=== PATIENT | female | born 1960 | race Caucasian/White ===

== ENCOUNTER → 2017-11-11 | Outpatient (CLI) | payer OTHER | LOC: CIMAGING 07:10 | PROVIDERS: ATTEND Obstetrics & Gynecology Gynecology | DX: Z12.31 Encounter for screening mammogram for malignant neoplasm of breast (principal) | CPT/HCPCS: G0202 ==

== ENCOUNTER 2017-11-17 05:36 | Day surgery (SDC) | payer OTHER ==
[2017-11-17] MEDS ORDERED: LR 1,000 ML IV ONE (06:11)
[2017-11-17 06:36] VITALS: PULSE 68
[2017-11-17] MEDS ORDERED: OXYMETAZOLINE 30 ML NASAL SPRAY ONE (07:10)
[2017-11-17] MEDS ORDERED: BUPIVACAINE 0.25% 30 ML SDV ONE (07:10)
[2017-11-17] MEDS ORDERED: fentaNYL 250 MCG/5 ML INJ ONE (07:12)
[2017-11-17] MEDS ORDERED: PROPOFOL/EMULSION 500 MG/50 ML BOTTLE IV ONE ×2 (07:12→07:18)
[2017-11-17] MEDS ORDERED: MIDAZOLAM 2 MG/2 ML VIAL IVP ONE (07:12)
[2017-11-17] MEDS ORDERED: MIDAZOLAM 2 MG/2 ML VIAL ONE (07:15)
[2017-11-17] MEDS ORDERED: ACETIC ACID IRR SOLN 0.25% 1,000 ML BTL ONE (07:20)
--- NOTE | 2017-11-17 07:26 | PDANEPAE ---
ANE History of Present Illness 57 y/o woman for excision of labial mass and tracheal lesion. ANE Past Medical History - Cardiovascular History Hx Hypertension: No Hx Arrhythmias: No Hx Chest Pain: No Hx Coronary Artery / Peripheral Vascular Disease: No Hx CHF / Valvular Disease: No Hx Palpitations: No - Pulmonary History Hx COPD: No Hx Asthma/Reactive Airway Disease: No Hx Recent Upper Respiratory Infection: No Hx Oxygen in Use at Home: No Hx Sleep Apnea: No Sleep Apnea Screening Result - Last Documented: Negative Pulmonary History Comment: quit smoking cigs 10-05-17 - Neurologic History Hx Cerebrovascular Accident: No Hx Seizures: No Hx Dementia: No - Endocrine History Hx Diabetes: No - Renal History Hx Renal Disorders: No - Liver History Hx Hepatic Disorders: No - Neurological & Psychiatric Hx Hx Neurological and Psychiatric Disorders: No - Cancer History Hx Cancer: No - Congenital Disorder History Hx Congenital Disorders: No - GI History Hx Gastrointestinal Disorders: No - Other Health History Other Health History: pre-cancerous lesion L labia. "white spot" on vocal cord. - Chronic Pain History Chronic Pain: No - Surgical History Prior Surgeries: T.L. age 28's ANE Review of Systems Review of systems is: negative Review of Systems: - Exercise capacity METS (RN): 4 METS ANE Patient History - Allergies Allergies/Adverse Reactions: codeine Allergy (Verified 11/07/17 10:12) Vomiting - Home Medications Home Medications: Premarin 05/28/16 [Last Taken 11/16/17] Progesterone 05/28/16 [Last Taken 11/16/17] buPROPion 05/28/16 [Last Taken 11/17/17] - NPO status NPO Since - Liquids (Date): 11/17/17 NPO Since - Solids (Date): 11/16/17 - Smoking Hx Smoking Status: Former smoker ANE Labs/Vital Signs - Vital Signs Blood Pressure: 112/76 Heart Rate: 68 Respiratory Rate: 16 O2 Sat (%): 94 Height: 160.02 cm Weight: 90.718 kg ANE Physical Exam - Airway Neck exam: FROM Mallampati Score: Class 2 - Pulmonary Pulmonary: no respiratory distress - Cardiovascular Cardiovascular: regular rate and rhythym - ASA Status ASA Status: II ANE Anesthesia Plan Anesthesia Plan: general endotracheal anesthesia
--- NOTE | 2017-11-17 07:31 | PDHPUP ---
History & Physical Update H&P update statement: This history and physical update is based on an assessment of the patient which was completed after admission or registration (within 24 hours), but prior to the surgery/procedure.
[2017-11-17] MEDS ORDERED: PROMETHAZINE HCL 25 MG/ML INJ IVP PRN (08:04)
[2017-11-17] MEDS ORDERED: LABETALOL HCL 5 MG/ML 20 ML MDV IVP PRN (08:04)
[2017-11-17] MEDS ORDERED: OXYCODONE/APAP 5/325 TAB PO PRN (08:04)
[2017-11-17] MEDS ORDERED: ONDANSETRON 4 MG/2 ML VIAL IVP PRN (08:04)
[2017-11-17] MEDS ORDERED: PHENYLEPHRINE HCL 100 MCG/ML SYR IVP PRN (08:04)
[2017-11-17] MEDS ORDERED: fentaNYL 100 MCG/2 ML INJ IVP PRN (08:04)
[2017-11-17] MEDS ORDERED: NALOXONE HCL 0.4 MG/ML INJ IVP PRN (08:04)
[2017-11-17] MEDS ORDERED: ALBUTEROL 3 ML DEYVIAL IH PRN (08:04)
[2017-11-17] MEDS ORDERED: ACETAMINOPHEN 500 MG TAB PO PRN (08:04)
[2017-11-17] MEDS ORDERED: epHEDrine SULFATE 10 MG/ML SYR IVP PRN (08:04)
[2017-11-17] MEDS ORDERED: LR 500 ML IV PRN (08:04)
[2017-11-17] MEDS ORDERED: DEXAMETHASONE 4 MG/ML VIAL IVP PRN (08:04)
--- NOTE | 2017-11-17 08:36 | POSTOPPROG ---
Post Op Note Date of Operation: 11/17/17 Surgeon: Shakila Sun Anesthesiologist: kiran Hughes Anesthesia: LMA Pre-op Diagnosis: vulvar dysplasia Post-op Diagnosis: vulvar dysplasia Indication: HILARIO 2-3 Procedure: wide local excision Findings: vulvar lesion on perineum Inf/Abcess present in the surg proc area at time of surgery?: No EBL: Minimal
--- NOTE | 2017-11-17 09:27 | POSTOPPROG ---
Post Op Note Date of Operation: 11/17/17 Surgeon: Daniel Newman Anesthesia: GET(General Endotracheal) Pre-op Diagnosis: right vocal cord lesion Post-op Diagnosis: same Procedure: microlaryngoscopy with laser including excision and ablation of left vocal Findings: left tvc lesion Inf/Abcess present in the surg proc area at time of surgery?: No Depth: Superfical (Skin SQ) EBL: Minimal Specimen(s): left vocal lesion
--- NOTE | 2017-11-17 09:49 | POSTANESTH ---
Post Anesthetic Evaluation Cardiovascular Status: Normal, Stable Respiratory Status: Normal, Stable Level of Consciousness/Mental Status: Can Participate in Eval Pain Control: Adequate, Prn Tx Ordered Nausea/Vomiting Control: Adequate, Prn Tx Ordered Complications Possibly Related to Anesthesia: None Noted
[2017-11-17 10:58] VITALS: RESP 18; TEMP 98.2
[2017-11-17 11:22] VITALS: BP 110/85; O2SAT 82
--- NOTE | 2017-11-17 11:53 | GOP ---
[f rep st] OPERATIVE REPORT DATE OF OPERATION: 11/17/2017 SURGEON: Shakila Sun MD ANESTHESIA: General with LMA. 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 PROCEDURE PERFORMED: Wide local excision. FINDINGS: Similar-appearing lesion at the 5 o'clock position on the perineum extending into the left labia minora. Complete acetowhite evaluation of the vulva done and there were no other acetowhite c hanges and then inspection of the vagina done with vinegar and no acetowhite changes noted. INDICATIONS: Patient is a 57-year-old noted to have a vulvar lesion at annual exam last month. Biop sy showed HILARIO 2-3 with positive margins. The patient needs further removal of tissue and also for fu rther diagnosis of lesion to rule out any carcinoma in situ. The patient is aware that there is a po ssibility that she might have persistent margins and may need a repeat surgery. DESCRIPTION OF PROCEDURE: With informed consent signed, patient taken out room placed under general anesthesia, placed in the low dorsal lithotomy position, was not prepped but draped. She previously emptied her bladder. I first did an inspection with the acetic acid and findings as noted above, and then was marked with a purple marker the extent of the lesion and where my margins needed to be. Ne xt, the area was cleaned with Betadine and then injected with 0.25% Marcaine for postop pain control. The scalpel was used to excise the marked area and the entire tissue came out intact and then hemos tasis was obtained with Bovie cautery. Then, 2 deeper incisions to reapproximate the incised sites u sed with 3-0 Vicryl. These were 2 interrupted sutures and then 4-0 Monocryl was used to bring the ti ssue edges together and this was done with interrupted sutures so the skin lines came together very w ell with no increased tension. KY jelly was placed on the site and then patient was placed in the sup ine position. The patient was not woken up as Dr. Timothy Newman plans to do a vocal cord biopsy outpat ient. COMPLICATIONS: None. /[id number]/MODL
--- NOTE | 2017-11-17 12:48 | GOP ---
[f rep st] OPERATIVE REPORT DATE OF OPERATION: 11/17/2017 SURGEON: Jr Newman MD ANESTHESIA: General endotracheal. PREOPERATIVE DIAGNOSIS: Left vocal cord lesion. POSTOPERATIVE DIAGNOSIS: Left vocal cord lesion. PROCEDURE PERFORMED: Microlaryngoscopy with biopsy of left vocal cord lesion followed by laser ablat ion of base of lesion. 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 ESTIMATED BLOOD LOSS: 3 mL fluid. DESCRIPTION OF PROCEDURE: The patient was placed on the operating table in supine position. The andrew ent had undergone prior excision of a lesion by Dr. Sun. Following her portion of procedure, steri le eye pads and head drape were placed. A shoulder roll was placed under the patient's shoulders to extend the neck. A rubber tooth guard was placed over the upper incisors and the Dedo laryngoscope wa s advanced to the oral cavity and then into the oropharynx. The scope was then used to visualize the larynx. A lesion of the left vocal cord, which had been previously visualized in my office on the vi pam fiber endoscopy, was noted. The lesion was examined and was noted to be somewhat friable. The les ion was grasped with a cup forceps and retracted medially. The base of the lesion was excised using curved scissors. The lesion was then sent for frozen section evaluation which was read as consistent with [id number] dysplasia, no severe dysplasia or invasive carcinoma was identified. At this point, it was elected to vaporize the base of the lesion. This was done using the CO2 laser on defocu s mode. The remaining abnormal looking tissue was treated with the laser and then virtually the enti re base of the lesion was treated with the CO2 laser in a defocus manner. At this point, the procedur e was terminated. The patient was then awakened, transferred to postanesthesia recovery in stable co ndition. FLUIDS REPLACED: 300 mL. COMPLICATIONS: None. /[id number]/MODL
== END 2017-11-17 11:23 | disposition home or self-care (01) ==
LOC: FSGY 05:36
PROVIDERS: ATTEND Obstetrics & Gynecology Gynecology
PROC: 0CBV8ZX Excision of Left Vocal Cord, Via Natural or Artificial Opening Endoscopic, Diagnostic (ICD-10-PCS; principal; 2017-11-17 07:15)
PROC: 0C5V8ZZ Destruction of Left Vocal Cord, Via Natural or Artificial Opening Endoscopic (ICD-10-PCS; principal; 2017-11-17 07:15)
PROC: 0UBMXZX Excision of Vulva, External Approach, Diagnostic (ICD-10-PCS; 2017-11-17 07:15)
DX: J38.3 Other diseases of vocal cords (principal); N90.3 Dysplasia of vulva, unspecified; Z87.891 Personal history of nicotine dependence
CPT/HCPCS: J2250; J2704; J3010

== ENCOUNTER → 2018-11-24 | Outpatient (CLI) | payer OTHER | LOC: CIMAGING 07:16 | PROVIDERS: ATTEND Obstetrics & Gynecology Gynecology | DX: Z12.31 Encounter for screening mammogram for malignant neoplasm of breast (principal); R92.2 Inconclusive mammogram ==

== ENCOUNTER → 2018-12-06 | Outpatient (CLI) | payer OTHER | LOC: CIMAGING 12:41 | PROVIDERS: ATTEND Obstetrics & Gynecology Gynecology | DX: R92.8 Other abnormal and inconclusive findings on diagnostic imaging of breast (principal) | CPT/HCPCS: 76641-PO ==

== ENCOUNTER 2019-04-19 08:37 | Day surgery (SDC) | payer OTHER ==
--- NOTE | 2019-04-18 10:16 | PDHPUP ---
History & Physical Update H&P update statement: This history and physical update is based on an assessment of the patient which was completed after admission or registration (within 24 hours), but prior to the surgery/procedure. H&P update: H&P reviewed & patient examined, no change in patient's condition since H&P completed
[2019-04-19] MEDS ORDERED: DEXAMETHASONE 4 MG/ML VIAL IVP ONE (09:11)
[2019-04-19] MEDS ORDERED: ceFAZolin 2 GM/DEXTROSE 100 ML IV ONE (09:11)
[2019-04-19] MEDS ORDERED: LR 1,000 ML IV ONE (09:12)
[2019-04-19] MEDS ORDERED: MIDAZOLAM 2 MG/2 ML VIAL IVP ONE (10:11)
--- NOTE | 2019-04-19 10:11 | PDANEPAE ---
ANE History of Present Illness vocal cord cancerous lesion ANE Past Medical History - Cardiovascular History Hx Hypertension: No Hx Arrhythmias: No Hx Chest Pain: No Hx Coronary Artery / Peripheral Vascular Disease: No Hx CHF / Valvular Disease: No Hx Palpitations: No - Pulmonary History Hx COPD: No Hx Asthma/Reactive Airway Disease: No Hx Recent Upper Respiratory Infection: No Hx Oxygen in Use at Home: No Hx Sleep Apnea: No Sleep Apnea Screening Result - Last Documented: Negative Pulmonary History Comment: Quit smoking cigs 10-05-17 - Neurologic History Hx Cerebrovascular Accident: No Hx Seizures: No Hx Dementia: No - Endocrine History Hx Diabetes: No Hypothyroid: No Hyperthyroid: No Obesity: moderate - Renal History Hx Renal Disorders: No - Liver History Hx Hepatic Disorders: No - Neurological & Psychiatric Hx Hx Neurological and Psychiatric Disorders: No Neurological / Psychiatric History Comment: Bupropion for smoking cessation. - Cancer History Hx Cancer: No Cancer History Comment: L labial lesion percancerous 2016. L vocal cord lesion precancerous 2016. - Congenital Disorder History Hx Congenital Disorders: No - GI History GERD: no Hx Gastrointestinal Disorders: No - Other Health History Other Health History: L labial lesion percancerous 2016. L vocal cord lesion precancerous 2017. Lichen planus chronic skin rash, uses ointment. Dental implant and 3-tooth bridge in upper front - Chronic Pain History Chronic Pain: No - Surgical History Prior Surgeries: T.L. age 30's. L vocal cord lesion laser surgery/L labial lesion excision 2016 ANE Review of Systems Review of systems is: negative Review of Systems: - Exercise capacity Exercise capacity: >=4 METS METS (RN): 4 METS ANE Patient History - Allergies Allergies/Adverse Reactions: codeine Allergy (Verified 11/07/17 10:12) Vomiting - Home Medications Home medications: home medication list seen and reviewed Home Medications: Premarin 0.3 mg DAILY 05/28/16 [Last Taken 04/18/19 21:30] Progesterone 100 mg DAILY 05/28/16 [Last Taken 04/18/19 21:30] buPROPion 150 mg BID 05/28/16 [Last Taken 04/19/19 07:00] Naproxen 500 mg PO PRN 04/10/19 [Last Taken 03/15/19] Zolpidem Tartrate 5 mg PO 04/10/19 [Last Taken 04/12/19] - NPO status NPO Status: no food or drink >8 hours NPO Since - Liquids (Date): 04/19/19 NPO Since - Liquids (Time): 07:00 NPO Since - Solids (Date): 04/18/19 NPO Since - Solids (Time): 19:00 - Anes Hx Anes Hx: no prior problems - Smoking Hx Smoking Status: Former smoker - Family Anes Hx Family Hx Anesthesia Complications: None. ANE Labs/Vital Signs - Vital Signs Vital Signs: reviewed preoperatively; see RN documention for details Blood Pressure: 132/99 Heart Rate: 79 Respiratory Rate: 16 O2 Sat (%): 94 Height: 160.02 cm Weight: 90.718 kg ANE Physical Exam - Airway Neck exam: FROM Mallampati Score: Class 2 Mouth exam: normal dental/mouth exam - Pulmonary Pulmonary: no respiratory distress, clear to auscultation - Cardiovascular Cardiovascular: regular rate and rhythym - ASA Status ASA Status: II ANE Anesthesia Plan Anesthesia Plan: general endotracheal anesthesia
[2019-04-19] MEDS ORDERED: OXYMETAZOLINE 30 ML NASAL SPRAY ONE (10:18)
[2019-04-19] MEDS ORDERED: fentaNYL 100 MCG/2 ML INJ ONE (10:44)
[2019-04-19] MEDS ORDERED: METHYLENE BLUE 0.5% 50 MG/10 ML AMP ONE (10:44)
[2019-04-19] MEDS ORDERED: PROPOFOL 200 MG/20 ML VIAL ONE ×2 (10:44→11:29)
[2019-04-19] MEDS ORDERED: ONDANSETRON 4 MG/2 ML VIAL ONE (10:50)
[2019-04-19] MEDS ORDERED: ROCURONIUM 50 MG/5 ML VIAL ONE (10:50)
[2019-04-19] MEDS ORDERED: DEXAMETHASONE 4 MG/ML VIAL ONE ×2 (10:50)
[2019-04-19] MEDS ORDERED: LIDOCAINE 2% 5 ML SDV ONE (11:10)
[2019-04-19] MEDS ORDERED: ESMOLOL HCL 100 MG/10 ML VIAL IV ONE (11:13)
[2019-04-19] MEDS ORDERED: SUGAMMADEX SODIUM 200 MG/2 ML VIAL IVP ONE (11:29)
[2019-04-19] MEDS ORDERED: fentaNYL 100 MCG/2 ML INJ IVP PRN (11:32)
[2019-04-19] MEDS ORDERED: ALBUTEROL 3 ML DEYVIAL IH PRN (11:32)
[2019-04-19] MEDS ORDERED: PHENYLEPHRINE HCL 100 MCG/ML SYR IVP PRN (11:32)
[2019-04-19] MEDS ORDERED: METOCLOPRAMIDE 10 MG/2 ML VIAL IVP PRN (11:32)
[2019-04-19] MEDS ORDERED: MEPERIDINE 25 MG/0.5 ML AMP IVP PRN (11:32)
[2019-04-19] MEDS ORDERED: oxyCODONE IR 5 MG TAB PO PRN (11:32)
[2019-04-19] MEDS ORDERED: PROMETHAZINE HCL 25 MG/ML INJ IVP PRN (11:32)
[2019-04-19] MEDS ORDERED: ACETAMINOPHEN 500 MG TAB PO PRN (11:32)
[2019-04-19] MEDS ORDERED: NALOXONE HCL 0.4 MG/ML INJ IVP PRN (11:32)
[2019-04-19] MEDS ORDERED: HYDROmorphONE/DILAUDID 1 MG/ML INJ IVP PRN (11:32)
[2019-04-19] MEDS ORDERED: ONDANSETRON 4 MG/2 ML VIAL IVP PRN (11:32)
[2019-04-19] MEDS ORDERED: LABETALOL HCL 5 MG/ML 20 ML MDV IVP PRN (11:32)
[2019-04-19] MEDS ORDERED: DEXAMETHASONE 4 MG/ML VIAL IVP PRN (11:32)
[2019-04-19] MEDS ORDERED: LR 500 ML IV PRN (11:32)
--- NOTE | 2019-04-19 12:05 | POSTOPPROG ---
Post Op Note Date of Operation: 04/19/19 Surgeon: Daniel Newman Anesthesiologist: aretha Anesthesia: GET(General Endotracheal) Pre-op Diagnosis: left vocal lesion Post-op Diagnosis: same Procedure: microlaryngoscopy with laser excision left vocal lesion Findings: left vocal lesion Depth: Superfical (Skin SQ) EBL: Minimal Total fluids administered: 700 Complications: none Bowel Protocol: N/A Clean Closure Performed: N/A Specimen(s): left vocal lesion
[2019-04-19 12:44] VITALS: BP 120/87
--- NOTE | 2019-04-21 11:40 | GOP ---
[f rep st] OPERATIVE REPORT DATE OF OPERATION: 04/19/2019 SURGEON: Jr Newman MD PREOPERATIVE DIAGNOSIS: Left vocal cord lesion. POSTOPERATIVE DIAGNOSIS: Left vocal cord lesion. PROCEDURE PERFORMED: Laser excision of left vocal cord lesion. FINDINGS: Lesion left true vocal cord excised with the CO2 laser, as well as micro scissors. ESTIMATED BLOOD LOSS: 2 mL DESCRIPTION OF PROCEDURE: Patient was placed on the operating table in supine position. After induc tion of adequate general endotracheal anesthesia, sterile draping was performed. Sterile eye pads an d head drape were placed. A tooth guard was placed along the upper incisors to protect them. Once t his had been completed, the Dedo laryngoscope was advanced into the oral cavity and into the orophary nx. The right and left piriform sinus were examined, as well as post cricoid region and posterior ph aryngeal wall. They were found to be within normal limits. The endolaryngeal structures were examin ed. A lesion of the left anterior vocal cord, which had been previously biopsied and noted to be dys plastic, was visualized using the operating microscope. At this point, the CO2 laser was brought in. Using the CO2 laser initially on 5 summers continuous, the lesion was excised from the medial aspect of the vocal cord. It was noted that the laser was somewhat over powered and was immediately dropped to 2 mm continuous. Circumferential dissection of the lesion of the left anterior mid vocal cord wa s performed using the CO2 laser to demarcate its periphery. A deep layer excision of the lesion was performed using micro cup forceps and scissors. Once the lesion had been completely excised, the pro cedure was terminated. A pledget soaked in Koko-Synephrine was applied to the area of resection of th e right vocal cord. Once hemostasis had been completely obtained, the laryngoscope was withdrawn as was the upper tooth guard. The patient was then awakened and transferred to the post anesthesia christie very area in stable condition. FLUID REPLACEMENT: 700 mL COMPLICATIONS: None. /[id number]/MODL
== END 2019-04-19 13:22 | disposition home or self-care (01) ==
LOC: FSGY 08:37
PROVIDERS: ATTEND Otolaryngology
PROC: 0CBV8ZX Excision of Left Vocal Cord, Via Natural or Artificial Opening Endoscopic, Diagnostic (ICD-10-PCS; principal; 2019-04-19 10:15)
DX: J38.3 Other diseases of vocal cords (principal)
CPT/HCPCS: J0690; J1100; J2250; J2405; J2704; J3010; Q9968